=== PATIENT | male | born 1980 | race African-American/Black ===

== ENCOUNTER → 2019-06-20 | Emergency (ER) | payer MEDICAID ==
[~2019-06-20] VITALS: Ht 180.3 cm; Wt 81.6 kg
[~2019-06-20] MED LIST: CLINDAMYCIN HC300 MG ORAL; GENTAK5 ML LEFT EYE
--- NOTE | 2019-06-20 17:10 | NUR ---
ED Nurse Note: patient walked in c/o left eye swelling and discharge x4days. denies injury or visual impairment. no trauma or wound noted on the eye. pt does not present with fever, vss, nad. will continue to monitor patient.
[2019-06-20 17:25] VITALS: BP 138/72
--- NOTE | 2019-06-20 17:25 | NUR ---
ER DISCHARGE NOTE: Patient is cleared to be discharged per ERMD, pt is aox4, on room air, with stable vital signs. pt was given dc and prescription instructions, pt was able to verbalize understanding, pt id band removed without complications. pt is able to ambulate with steady gait. pt took all belongings.
--- NOTE | 2019-06-20 17:29 | Emergency Room Report ---
History of Present Illness General Chief Complaint: Eye Problems Source: Patient Present Illness HPI Patient presents with complaints of left eye irritation Initially there was some mild discomfort on Saturday every day since then the patient had some mild increased change Yesterday he had put some home remedy on the area and today the area became more red and irritated There is some swelling also under the eye itself Denies any change in vision denies any other trauma denies any fevers or chills Allergies: Coded Allergies: PENICILLINS (Verified Allergy, Unknown, 06/20/19) Patient History Past Medical History: see triage record Reviewed Nursing Documentation: PMH: Agreed; PSxH: Agreed Nursing Documentation-PMH Past Medical History: No Stated History Review of Systems All Other Systems: negative except mentioned in HPI Physical Exam Vital Signs Date Time Temp Pulse Resp B/P (MAP) Pulse Ox O2 Delivery O2 Flow Rate FiO2 06/20/19 17:06 98.1 75 18 138/72 (94) 98 Room Air Sp02 EP Interpretation: reviewed, normal General Appearance: well appearing, no apparent distress Head: normocephalic, atraumatic Eyes: left eye other - Some mild conjunctival irritation, there is also a small pustule noted just at the midpoint of the lower eyelid with associated mild swelling and erythema to the lower left eyelid as well no signs of proptosis,; bilateral eye EOMI ENT: normal pharynx Neck: supple, no meningismus Respiratory: lungs clear, no respiratory distress, no retraction Cardiovascular #1: regular rate, rhythm Musculoskeletal: normal inspection Neurologic: alert, oriented x3 Psychiatric: normal inspection Skin: other - As above Lymphatic: no adenopathy Medical Decision Making Diagnostic Impression: Primary Impression: conjunctivitis Additional Impression: pustule ER Course Patient findings appear to be consistent with small stye, associated conjunctivitis The associated swelling and mild erythema on the lower eyelid appears to be consistent with secondary changes from the above Periorbital cellulitis needs to be considered however Patient does not show any signs of limitation with the extraocular movements Patient also does not show any signs of proptosis and will have initial conservative outpatient trial Last Vital Signs Date Time Temp Pulse Resp B/P (MAP) Pulse Ox O2 Delivery O2 Flow Rate FiO2 06/20/19 17:06 98.1 75 18 138/72 (94) 98 Room Air Status: unchanged Disposition: HOME, SELF-CARE Condition: Stable Scripts Gentamicin Sulfate* (GENTAK*) 5 Ml Drops 2 DROP LEFT EYE Q4H for 7 Days, #1 DROP 0 Refills Prov: Otoniel Mo DO 06/20/19 Clindamycin Hcl (CLINDAMYCIN HCL) 300 Mg Capsule 300 MG ORAL THREE TIMES A DAY for 7 Days, #21 CAP Prov: Otoniel Mo DO 06/20/19 Referrals: [facility]. [facility] Patient Instructions: Xavier, Bacterial Conjunctivitis Additional Instructions: Patient is provided with the discharge instructions notified to follow up with primary doctor in the next 2-3 days otherwise return to the er with any worsening symptoms. Please note that this report is being documented using [employer] technology. This can lead to erroneous entry secondary to incorrect interpretation by the dictating instrument. Otoniel Mo DO Jun 20, 2019 17:29
== END | disposition home or self-care (01) ==
LOC: EMR 17:34
DX: H10.9 Unspecified conjunctivitis (principal); L08.9 Local infection of the skin and subcutaneous tissue, unspecified; Z88.0 Allergy status to penicillin
CPT/HCPCS: 99282